=== PATIENT | female | born 1960 | race African-American/Black ===

== ENCOUNTER 2017-03-31 17:20 | Inpatient (IN) | payer BC ==
[2017-03-31 23:00] VITALS: BP 163/82; PULSE 86; RESP 18; TEMP 97.6; O2SAT 96
[2017-03-31] MEDS ORDERED: diphenhydrAMINE HCL 50 MG CAP - HS PRN PO (23:30)
[2017-03-31] MEDS ORDERED: LORazepam 2 MG/ML VIAL IM PRN (23:30)
[2017-03-31] MEDS ORDERED: ALUMINUM/MAGNESIUM/SIMETH 30 ML CUP PO PRN (23:30)
[2017-03-31] MEDS ORDERED: diphenhydrAMINE HCL 50 MG/ML VIAL IM PRN (23:30)
[2017-03-31] MEDS ORDERED: LORazepam 1 MG TAB PO PRN (23:30)
[2017-03-31] MEDS ORDERED: MAGNESIUM HYDROXIDE SUSP 30 ML CUP PO PRN (23:30)
[2017-03-31] MEDS ORDERED: traZODone HCL 50 MG TAB PO PRN (23:30)
[2017-03-31] MEDS ORDERED: diphenhydrAMINE HCL 50 MG/ML VIAL - HS PRN IM (23:30)
[2017-04-01] MEDS: diphenhydrAMINE HCL 50 MG CAP PO PRN (00:58)
[2017-04-01] MEDS: risperiDONE 1 MG TAB PO SCH ×3 (00:58→20:55)
[2017-04-01] MEDS ORDERED: ZIPRASIDONE MESYLATE 20 MG VIAL IM ONE (02:00)
[2017-04-01 04:40] VITALS: BP 145/76; PULSE 83; RESP 16; TEMP 97.2; O2SAT 95
[2017-04-01] MEDS ORDERED: HALOPERIDOL LACTATE 5 MG/ML AMP ONE (07:24)
[2017-04-01] MEDS ORDERED: HALOPERIDOL LACTATE 5 MG/ML AMP IM STA (07:30)
[2017-04-01] MEDS ORDERED: HALOPERIDOL 5 MG TAB PO PRN (14:45)
--- NOTE | 2017-04-01 14:45 | HHI.HP ---
Provisional Diagnosis Admission Date Mar 31, 2017 at 23:14 [place] I. 1. Bipolar disorder, type I, currently manic, severe with psychotic features [place] II. Deferred Certification of Person's Competence To Provide Express and Informed Consent I have personally examined Elizabeth Fisher , a person being served at [facility] on, Apr 01, 2017 14:45. Express and informed consent means consent voluntarily given in writing, by a competent person, after sufficient explanation and disclosure of the subject matter involved to enable the person to make a knowing and willful decision without any element of force, fraud, deceit, duress, or other form of constraint or coercion. This person is 18 years of age or older, is not now known to be incompetent to consent to treatment with a guardian advocate, and does not have a health care surrogate or proxy currently making medical treatment decisions. I have found this person to be one of the following: [] Competent to provide express and informed consent, as defined above, for voluntary admission to this facility and is competent to provide express and informed consent for treatment. He/she has the consistent capacity to make well reasoned, willful, and knowing decisions concerning his or her medical or mental health treatment. The person fully and consistently understands the purpose of the admission for examination/placement and is fully capable of personally exercising all rights assured under [place] [x] Incompetent to provide express and informed consent to voluntary admission, and this is incompetent to provide express and informed consent to treatment. The person must be transferred to involuntary status and a petition for a guardian advocate filed with the Circuit Court. [] Refusing to provide express and informed consent to voluntary admission but is competent to provide express and informed consent for treatment. The person must be discharged or transferred to involuntary status. Form shall be completed within 24 hours of a person's arrival at the receiving facility and filed in the clinical record of each person: 1. Admitted on a voluntary basis 2. Permitted to provide express and informed consent to his/her own treatment 3. Allowed to transfer from involuntary to voluntary status 4. Prior to permitting a person to consent to his or her own treatment after having been previously found incompetent to consent to treatment. History of Present Illness Capacity: Lacks Capacity HPI Ms. Fisher is a 56-year-old female with a reported history of bipolar disorder who presents in transfer from hospital in [place] under a Reeder Act. Documentation from outside hospital reviewed. Reviewing our own electronic medical record, it appears this is patient's first visit to [facility]. Patient seen and examined with nurse. Chart reviewed. Case discussed with nursing staff. Patient was extremely behaviorally disorganized this morning, stripping off her clothes, urinating and rolling in the urine. I was called to provide an ETO order and medicated the patient with Haldol. At the time of my evaluation now in the early afternoon, the patient seems to be deriving significant benefit from this injection. She is much more organized and able to provide a fairly coherent history. She says "I used to have high feelings for lin or women by themselves. Now, since the election started, it was with Jonatan. How it would be bad for him to become president. So I felt like I was going to hell, but I got snatched out of a downward spiral by the rahel of God." She says that she believes that she was rescued by a insole tack puller hand and says "he and I are going to be ." She says "it feels like it's God telling me to do things that I otherwise wouldn't do like partying in the nude." Thought process remains tangential with significant loosening of associations. She denies audiovisual hallucinations but appears internally preoccupied. Affect is somewhat blunted now, but this is likely secondary to ETO. She denies any suicidal or homicidal ideation but seems unreliable to contract for safety. She says that her sleep and appetite recently have been fair. Remainder of the psychiatric ROS is negative. Nursing staff has obtain collateral from the patient's mother to the effect that she has been decompensating since late last week. Main stressor was apparently a low score on and exam in college. Past psychiatric history: The patient reports a history of bipolar disorder. She is followed by a female psychiatrist but cannot remember the name. She is prescribed lithium, Risperdal and Cogentin, and mother has provided us with the doses. She says that her last psychiatric admission was about a year ago. She denies a history of suicide attempts. Family history: The patient denies a family history of mental illness. Chemical dependency history: The patient denies any abuse of drugs or alcohol. Social history: The patient reports that she lives alone. She attends [employer]. 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 She also works at a [employer]. She is single with no children. No reported access to guns or firearms. Review of Systems ROS Limitations: Psychotic, Poor Historian Except as stated in HPI: all other systems reviewed are Neg Past Psych History Psychological trauma history No reported trauma history to me. Violence risk - others (6 mos) Indeterminate. Patient is psychotic and unpredictable. Violence risk - self (6 mos) Indeterminate. Patient is psychotic and unpredictable. Substance Abuse History Drugs/Alcohol past 12 months See above Past Family Social History Coded Allergies: Penicillin (Verified Allergy, Unknown, 03/31/17) Past Medical History Patient denies any significant medical history. Current Medications Medications (Trade) Dose Ordered Sig/Deedee Route Start Time Stop Time Status Last Admin (Ativan) 1 mg Q6H PRN PO 03/31/17 23:30 04/01/17 00:58 (Ativan Inj) 1 mg Q6H PRN IM 03/31/17 23:30 04/01/17 07:05 (Atarax) 50 mg Q6H PRN PO 03/31/17 23:30 (Benadryl) 50 mg Q6H PRN PO 03/31/17 23:30 04/01/17 00:58 (Benadryl Inj) 50 mg Q6H PRN IM 03/31/17 23:30 04/01/17 07:06 (Benadryl) 50 mg HS PRN PO 03/31/17 23:30 (Benadryl Inj) 50 mg HS PRN IM 03/31/17 23:30 (Desyrel) 50 mg HS PRN PO 03/31/17 23:30 (Tylenol) 650 mg Q4H PRN PO 03/31/17 23:30 (Milk Of Magnesia Liq) 30 ml DAILY PRN PO 03/31/17 23:30 (Mag-Al Plus Susp Liq) 30 ml Q6H PRN PO 03/31/17 23:30 (risperDAL) 2 mg BID PO 03/31/17 23:28 04/01/17 00:58 Family History See above Social History See above Patient's Strengths (min. 2) Supportive mother. Verbally fluent. Physical Exam Physical examination completed at referring hospital. On my examination today, the patient appears to be fairly well-nourished and well-developed and in no acute physical distress. No motoric abnormalities noted. Laboratories and vital signs reviewed: Vital Signs Vital Signs Date Time Temp Pulse Resp B/P Pulse Ox O2 Delivery O2 Flow Rate FiO2 04/01/17 04:40 97.2 83 16 145/76 95 Lab Results CBC is unremarkable. CMP is significant for mildly elevated anion gap and mild hyperglycemia in a nonfasting sample. Urine toxicology negative. Alcohol level undetectable. Urinalysis reveals 1+ ketones. Head CT was read as no acute process. Mental Status Examination Patient is in hospital gown. She is somewhat disheveled but now maintaining basic hygiene. Earlier this morning she was not maintaining basic hygiene. She is awake and alert and oriented to person. No evidence of delirium. No abnormal motor movements noted. The patient is presently somewhat psychomotor slowed, again likely secondary the ETO. Speech is somewhat slow. Focus and concentration mildly impaired. Memory grossly intact on clinical exam. Mood elevated. Affect presently blunted. Thought process tangential with significant loosening of associations. Grandiose delusions present. Denies AVH but appears internally preoccupied. Denies SI or HI but is unreliable to contract for safety. Insight and judgment are poor. Assessment & Plan Problem List: (1) Bipolar disorder ICD Code: F31.9 Assessment & Plan This is a 56-year-old female with psychiatric history as detailed above who presents in transfer from outside hospital under a Reeder act. Patient was significantly behaviorally disorganized this morning but is improved now status post ETO. Mood remains elevated with delusions of grandeur and significant loosening of associations suggestive of a severe manic episode with psychotic features. Patient reports approximately 3 days of medication nonadherence. Patient requires psychiatric hospitalization at this time for safety, observation and stabilization. Admit inpatient. Involuntary status. I've completed first opinion. Consult for second opinion. Request healthcare surrogate and guardian advocate. Check BMP and TFTs for lithium therapy. I will resume lithium 600 mg twice daily. Risperdal has artery been titrated to 2 mg twice daily, and I agree with this titration in light of her acutely psychotic state. I will continue Cogentin 2 mg twice daily for EPS. Haldol as needed for agitation, Ativan as needed for anxiety, Benadryl as needed for breakthrough EPS, Ambien as needed for insomnia. Vitals every shift. Counselor to see. Encourage participation in unit activities as patient is able given her level of function. Disposition planning. Estimated length of stay: 7-9 days. Discharge Planning Pending psychiatric stabilization Request HC Surrog/Guard Advoc?: Yes Problem Qualifiers (1) Bipolar disorder: Qualified Code: F31.2 - Bipolar affective disorder, currently manic, severe, with psychotic features Jossue Sarmiento MD Apr 01, 2017 14:45
[2017-04-01] MEDS: HALOPERIDOL LACTATE 5 MG/ML AMP IM PRN (15:34)
[2017-04-01] MEDS ORDERED: LORazepam 1 MG TAB PO PRN (17:30)
[2017-04-01 18:00] VITALS: BP 167/90; PULSE 93; RESP 17; TEMP 98.6; O2SAT 96
[2017-04-01] MEDS: LITHIUM CARBONATE 300 MG CAP PO SCH (20:55)
[2017-04-01] MEDS: BENZTROPINE MESYLATE 2 MG TAB PO SCH (20:55)
[2017-04-01] MEDS: LORazepam 2 MG/ML VIAL IM PRN (20:56)
[2017-04-02 06:46] VITALS: BP 144/87; PULSE 85; RESP 16; TEMP 97.6; O2SAT 99
[2017-04-02 07:54] LABS: BICARBONATE 25.4 MEQ/L (21.0-32.0); POTASSIUM 3.3 MEQ/L (3.5-5.1)
[2017-04-02] MEDS: LITHIUM CARBONATE 300 MG CAP PO SCH ×2 (08:07→21:46)
[2017-04-02] MEDS: BENZTROPINE MESYLATE 2 MG TAB PO SCH ×2 (08:07→21:46)
[2017-04-02] MEDS: risperiDONE 1 MG TAB PO SCH ×2 (08:07→21:46)
[2017-04-02 08:10] LABS: FREE T4 1.12 NG/DL (0.76-1.46)
--- NOTE | 2017-04-02 09:26 | HHI.PYPN ---
Subjective Remarks Patient seen on unit with nurse Trae and medical student Kenji, chart review, patient seen in her room. She shows marked thought blocking acknowledging auditory hallucinations claiming that the voice is her and at times consulted to do bad things there is marked decreased range intensity of her affect. She shown no significant behavioral problems. [place] level on admission contacted 0.3. Patient initially seen by Dr. Johnson's H&P reviewed and agreed with. He has signed first opinion petition supporting Reeder act. I agree. Patient meets criteria for involuntary psychiatric hospitalization under the Reeder act. Thus I will do second opinion petition supporting Reeder act for now we'll continue medication no change need to get a lithium level in about 3 days. We'll attempt to research her patient is in the family they can help us with treating this lady Review of Systems Except as stated in HPI: all other systems reviewed are Neg Objective Alert: Yes [place]: Person, Place Mood: Calm Affect: Other (decrease range and intensity of her affect) Memory Intact: Comment Hallucinations: Auditory (identifying it as her was threatening to work ) Delusions: Yes Delusion Type: Paranoid Suicidal: Ideation (denies) Homicidal: Ideation (denies) Insight/Judgment Poor Labs Test 04/02/17 07:00 Sodium Level 145 MEQ/L Potassium Level 3.3 MEQ/L Chloride Level 112 MEQ/L Carbon Dioxide Level 25.4 MEQ/L Anion Gap 8 MEQ/L Blood Urea Nitrogen 7 MG/DL Creatinine 0.97 MG/DL Estimat Glomerular Filtration 72 ML/MIN Rate Random Glucose 119 MG/DL Calcium Level 10.1 MG/DL Free Thyroxine 1.12 NG/DL Thyroid Stimulating Hormone 1.280 uIU/ML 3rd Gen [place] Level 0.3 MEQ/L Vitals/IOs Vital Signs Date Time Temp Pulse Resp B/P Pulse Ox O2 Delivery O2 Flow Rate FiO2 04/02/17 06:46 97.6 85 16 144/87 99 Assessment & Plan Problem List: (1) Bipolar disorder ICD Code: F31.9 Assessment & Plan Estimated LOS: days patient meets Reeder criteria will cosign second opinion petition supporting Reeder act. Continue medication at this time no change, will have counselor attempt to reach patient's family to get further information about this lady Justification for Cont. Inpt. At this time patient will decompensate the placed in a lower level of care Discharge Planning To be determined Request HC Surrog/Guard Advoc?: Yes Problem Qualifiers (1) Bipolar disorder: Qualified Code: F31.2 - Bipolar affective disorder, currently manic, severe, with psychotic features Leonel Boyd MD Apr 02, 2017 09:26
[2017-04-02] MEDS: HALOPERIDOL LACTATE 5 MG/ML AMP IM PRN (14:37)
[2017-04-02] MEDS: LORazepam 2 MG/ML VIAL IM PRN (14:37)
[2017-04-03 00:39] VITALS: BP 153/83; PULSE 107; RESP 18; TEMP 97.8; O2SAT 100
[2017-04-03 05:43] VITALS: BP 143/93; PULSE 119; RESP 18; TEMP 97.8; O2SAT 95
[2017-04-03] MEDS: ACETAMINOPHEN 325 MG TAB PO PRN (06:36)
[2017-04-03] MEDS: LITHIUM CARBONATE 300 MG CAP PO SCH ×2 (08:41→21:03)
[2017-04-03] MEDS: risperiDONE 1 MG TAB PO SCH ×2 (08:41→21:03)
[2017-04-03] MEDS: BENZTROPINE MESYLATE 2 MG TAB PO SCH ×2 (08:41→21:03)
--- NOTE | 2017-04-03 09:43 | HHI.PYPN ---
Subjective Remarks Patient seen in [address] with medical student Domo, patient now states she has 7 "played brothers and Place sisters, in her head. She also states she has a man friend in her head. Though she does not identify him as her and she did yesterday. She is otherwise been no significant behavioral problems did shower this morning the assistance of staff. She has been compliant with her medications. [place] level yesterday morning was 0.3. Will recheck it on for now continue other medications no change Review of Systems Except as stated in HPI: all other systems reviewed are Neg Objective Alert: Yes [place]: Person, Place Mood: Calm Affect: Other (decrease range and intensity of her affect) Memory Intact: Comment Hallucinations: Auditory (identifying it as her was threatening to work ) Delusions: Yes Delusion Type: Paranoid Suicidal: Ideation (denies) Homicidal: Ideation (denies) Insight/Judgment Poor Vitals/IOs Vital Signs Date Time Temp Pulse Resp B/P Pulse Ox O2 Delivery O2 Flow Rate FiO2 04/03/17 05:43 97.8 119 18 143/93 95 Assessment & Plan Problem List: (1) Bipolar disorder ICD Code: F31.9 Assessment & Plan Estimated LOS: days patient continue psychotic and delusional, she has been compliant with the medications. For now continue treatment no change will check lithium level on 04/05 Justification for Cont. Inpt. At this time patient will decompensate if placed in a lower level of care Discharge Planning To be determined Request HC Surrog/Guard Advoc?: Yes Problem Qualifiers (1) Bipolar disorder: Qualified Code: F31.2 - Bipolar affective disorder, currently manic, severe, with psychotic features Leonel Boyd MD Apr 03, 2017 09:43
[2017-04-03 17:53] VITALS: BP 137/85; PULSE 83; RESP 18; TEMP 97.7; O2SAT 99
[2017-04-04] MEDS: ACETAMINOPHEN 325 MG TAB PO PRN (02:01)
[2017-04-04] MEDS: LORazepam 2 MG/ML VIAL IM PRN (03:32)
[2017-04-04 06:23] VITALS: BP 149/90; PULSE 101; RESP 20; TEMP 99.2; O2SAT 98
[2017-04-04] MEDS: LITHIUM CARBONATE 300 MG CAP PO SCH ×2 (09:43→21:39)
[2017-04-04] MEDS: risperiDONE 1 MG TAB PO SCH ×2 (09:43→21:39)
[2017-04-04] MEDS: BENZTROPINE MESYLATE 2 MG TAB PO SCH ×2 (09:43→21:39)
--- NOTE | 2017-04-04 13:42 | HHI.PYPN ---
Subjective Remarks Patient seen in day room with nurse Nhan, chart reviewed, patient calm cooperative there delusions are slowly softening, she is compliant with medication. She does denies suicidality homicidality voices or visions at this time. At this summer feel patient has capacity to sign voluntary. Will lift Reeder act well patient to sign voluntary Review of Systems Except as stated in HPI: all other systems reviewed are Neg Objective Alert: Yes [place]: Person, Place Mood: Calm Affect: Other (decrease range and intensity of her affect) Memory Intact: Comment Hallucinations: Auditory (states voices are diminishing now) Delusions: Yes Delusion Type: Paranoid Suicidal: Ideation (denies) Homicidal: Ideation (denies) Insight/Judgment Poor Vitals/IOs Vital Signs Date Time Temp Pulse Resp B/P Pulse Ox O2 Delivery O2 Flow Rate FiO2 04/04/17 06:23 99.2 101 20 149/90 98 Assessment & Plan Problem List: (1) Bipolar disorder ICD Code: F31.9 Assessment & Plan Estimated LOS: days patient psychosis is softening, compliant medications, at this time patient has capacity to sign for this admission will lift Reeder act allow her to sign voluntary Justification for Cont. Inpt. At this time patient will decompensate the placed in the lower level of care Discharge Planning To be determined Request HC Surrog/Guard Advoc?: Yes Problem Qualifiers (1) Bipolar disorder: Qualified Code: F31.2 - Bipolar affective disorder, currently manic, severe, with psychotic features Leonel Boyd MD Apr 04, 2017 13:42
[2017-04-04 19:15] VITALS: BP 132/64; PULSE 84; RESP 18; TEMP 98.2; O2SAT 97
[2017-04-05 06:10] VITALS: BP 130/81; PULSE 108; RESP 16; TEMP 97.4; O2SAT 99
[2017-04-05] MEDS: risperiDONE 1 MG TAB PO SCH ×2 (08:20→20:45)
[2017-04-05] MEDS: LITHIUM CARBONATE 300 MG CAP PO SCH ×2 (08:20→20:45)
[2017-04-05] MEDS: BENZTROPINE MESYLATE 2 MG TAB PO SCH ×2 (08:20→20:45)
--- NOTE | 2017-04-05 16:31 | HHI.PYPN ---
Subjective Remarks Patient seen in dayroom with medical student Domo. Chart reviewed. Patient compliant with medications. She now denies suicidality homicidality voices or visions. States she wishes to go home she will have her mother and other family members help her for a while at home. Patient continues to do well consider discharge tomorrow Review of Systems Except as stated in HPI: all other systems reviewed are Neg Objective Alert: Yes [place]: Person, Place Mood: Calm Affect: Other (decrease range and intensity of her affect) Memory Intact: Comment Hallucinations: Auditory (now denies) Delusions: Yes Delusion Type: Paranoid Suicidal: Ideation (denies) Homicidal: Ideation (denies) Insight/Judgment Poor Labs Test 04/05/17 07:43 [place] Level 1.1 MEQ/L Vitals/IOs Vital Signs Date Time Temp Pulse Resp B/P Pulse Ox O2 Delivery O2 Flow Rate FiO2 04/05/17 06:10 97.4 108 16 130/81 99 Assessment & Plan Problem List: (1) Bipolar disorder ICD Code: F31.9 Assessment & Plan Estimated LOS: days patient psychosis slowly resolving she is improving doing better today if improvement continues consider discharge tomorrow Justification for Cont. Inpt. See above Discharge Planning Consider discharge tomorrow Request HC Surrog/Guard Advoc?: Yes Problem Qualifiers (1) Bipolar disorder: Qualified Code: F31.2 - Bipolar affective disorder, currently manic, severe, with psychotic features Leonel Boyd MD Apr 05, 2017 16:31
[2017-04-05 17:40] VITALS: BP 134/70; PULSE 78; RESP 18; TEMP 98.5; O2SAT 96
[2017-04-05] MEDS: diphenhydrAMINE HCL 50 MG CAP PO PRN (22:21)
[2017-04-05] MEDS: ZOLPIDEM TARTRATE 5 MG TAB PO PRN (22:21)
[2017-04-06 06:02] VITALS: BP 158/82; PULSE 76; RESP 18; TEMP 97.8; O2SAT 98
[2017-04-06] MEDS: LITHIUM CARBONATE 300 MG CAP PO SCH ×2 (09:38→21:02)
[2017-04-06] MEDS: BENZTROPINE MESYLATE 2 MG TAB PO SCH ×2 (09:38→21:02)
[2017-04-06] MEDS: risperiDONE 1 MG TAB PO SCH ×2 (09:39→21:02)
--- NOTE | 2017-04-06 15:21 | HHI.PYPN ---
Subjective Remarks Patient seen in dayroom with nurse Lindsay and medical student Domo chart reviewed. Patient compliant medication patient calm cooperative is vague about any auditory hallucinations at the present time though she still may be hearing "Dez" minivan patient showing no behavioral issues is calm and cooperative for now continue treatment Review of Systems Except as stated in HPI: all other systems reviewed are Neg Objective Alert: Yes [place]: Person, Place Mood: Calm Affect: Other (decrease range and intensity of her affect) Memory Intact: Comment Hallucinations: Auditory (now denies) Delusions: Yes Delusion Type: Paranoid Suicidal: Ideation (denies) Homicidal: Ideation (denies) Insight/Judgment Poor Vitals/IOs Vital Signs Date Time Temp Pulse Resp B/P Pulse Ox O2 Delivery O2 Flow Rate FiO2 04/06/17 06:02 97.8 76 18 158/82 98 Assessment & Plan Problem List: (1) Bipolar disorder ICD Code: F31.9 Assessment & Plan Estimated LOS: days patient continues psychotic though diminishing, compliant medications, no behavior problems. Justification for Cont. Inpt. At this time patient will decompensate the placed in a lower level of care Discharge Planning To be determined Request HC Surrog/Guard Advoc?: Yes Problem Qualifiers (1) Bipolar disorder: Qualified Code: F31.2 - Bipolar affective disorder, currently manic, severe, with psychotic features Leonel Boyd MD Apr 06, 2017 15:21
[2017-04-06 16:15] VITALS: BP 170/79; PULSE 78; RESP 18; TEMP 98.8; O2SAT 99
[2017-04-07 05:44] VITALS: BP 125/74; PULSE 91; RESP 18; TEMP 98.8; O2SAT 97
[2017-04-07] MEDS: BENZTROPINE MESYLATE 2 MG TAB PO SCH ×2 (09:07→21:09)
[2017-04-07] MEDS: LITHIUM CARBONATE 300 MG CAP PO SCH ×2 (09:07→21:09)
[2017-04-07] MEDS: risperiDONE 1 MG TAB PO SCH ×2 (09:07→21:00)
--- NOTE | 2017-04-07 15:27 | HHI.PYPN ---
Subjective Remarks Pt seen and discussed with staff. She is religiously preoccupied, telling RNs to put 777 on their forehead to protect against 666. She states that she is feeling better today. She states that she was fearful that she had missed the rapture and would be decapitated but now doesn't think that is true. She states that she was told she is on the right path for living and will be taken in the rapture. She is taking medications without complaints and has not been disruptive. Objective Alert: Yes [place]: Person, Place Mood: Calm Affect: Other (decrease range and intensity of her affect) Memory Intact: Comment Hallucinations: Auditory (now denies) Delusions: Yes Delusion Type: Other (lutheran delusions) Suicidal: Ideation (denies) Homicidal: Ideation (denies) Insight/Judgment poor Vitals/IOs Vital Signs Date Time Temp Pulse Resp B/P Pulse Ox O2 Delivery O2 Flow Rate FiO2 04/07/17 05:44 98.8 91 18 125/74 97 Assessment & Plan Problem List: (1) Bipolar disorder ICD Code: F31.9 Assessment & Plan Continue current tx plan. Estimated LOS: days Justification for Cont. Inpt. 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
[2017-04-07 18:00] VITALS: BP 147/71; PULSE 76; RESP 18; TEMP 98.5; O2SAT 95
[2017-04-07] MEDS: diphenhydrAMINE HCL 50 MG CAP PO PRN (21:09)
[2017-04-07] MEDS: ACETAMINOPHEN 325 MG TAB PO PRN (21:10)
[2017-04-07] MEDS: hydrOXYzine HCL 50 MG TAB PO PRN (22:47)
[2017-04-08 06:04] VITALS: BP 153/80; PULSE 84; RESP 17; TEMP 98.6; O2SAT 98
[2017-04-08] MEDS: BENZTROPINE MESYLATE 2 MG TAB PO SCH ×2 (09:25→20:46)
[2017-04-08] MEDS: LITHIUM CARBONATE 300 MG CAP PO SCH ×2 (09:25→20:46)
[2017-04-08] MEDS: risperiDONE 1 MG TAB PO SCH ×2 (09:26→20:47)
--- NOTE | 2017-04-08 12:59 | HHI.PYPN ---
Subjective Remarks Pt seen and discussed with staff. Pt is compliant with mediations and denies side effects. She remains religiously preoccupied but states that depression is better because she prayed for a sign and received a message that god is not condemning her. She has spent most of the morning coping bible verses. No agitation or aggression. She is compliant with medications. No SI/HI Objective Alert: Yes [place]: Person, Place Mood: Calm Affect: Other (decrease range and intensity of her affect) Memory Intact: Comment Hallucinations: Auditory (now denies) Delusions: Yes Delusion Type: Other (judaism delusions) Suicidal: Ideation (denies) Homicidal: Ideation (denies) Insight/Judgment poor Vitals/IOs Vital Signs Date Time Temp Pulse Resp B/P Pulse Ox O2 Delivery O2 Flow Rate FiO2 04/08/17 06:04 98.6 84 17 153/80 98 Assessment & Plan Problem List: (1) Bipolar disorder ICD Code: F31.9 Assessment & Plan Continue current tx plan Estimated LOS: days Justification for Cont. Inpt. risk of decompensation Request HC Surrog/Guard Advoc?: Yes Problem Qualifiers (1) Bipolar disorder: Qualified Code: F31.2 - Bipolar affective disorder, currently manic, severe, with psychotic features Germania Zelaya MD Apr 08, 2017 12:59
[2017-04-08] MEDS: hydrOXYzine HCL 50 MG TAB PO PRN (20:48)
[2017-04-09 06:15] VITALS: BP 144/92; PULSE 92; RESP 17; TEMP 98.1; O2SAT 96
[2017-04-09] MEDS: BENZTROPINE MESYLATE 2 MG TAB PO SCH ×2 (09:06→20:21)
[2017-04-09] MEDS: risperiDONE 1 MG TAB PO SCH ×2 (09:06→20:20)
[2017-04-09] MEDS: LITHIUM CARBONATE 300 MG CAP PO SCH ×2 (09:06→20:20)
--- NOTE | 2017-04-09 17:08 | HHI.PYPN ---
Subjective Remarks Patient seen on unit with nurse know and medical student Domo, chart review , patient compliant medications no significant behavior problems have little anxiety attack earlier today but coping with that well. For now continue treatment Review of Systems Except as stated in HPI: all other systems reviewed are Neg Objective Alert: Yes [place]: Person, Place Mood: Calm Affect: Other (decrease range and intensity of her affect) Memory Intact: Comment Hallucinations: Auditory (now denies) Delusions: Yes Delusion Type: Other (jainism delusions) Suicidal: Ideation (denies) Homicidal: Ideation (denies) Insight/Judgment Poor Vitals/IOs Vital Signs Date Time Temp Pulse Resp B/P Pulse Ox O2 Delivery O2 Flow Rate FiO2 04/09/17 06:15 98.1 92 17 144/92 96 Assessment & Plan Problem List: (1) Bipolar disorder ICD Code: F31.9 Assessment & Plan Estimated LOS: days patient psychosis is resolving, compliant medications, for now continue treatment Justification for Cont. Inpt. At this time patient will decompensate the place a lower level of care Discharge Planning To be determined Request HC Surrog/Guard Advoc?: Yes Problem Qualifiers (1) Bipolar disorder: Qualified Code: F31.2 - Bipolar affective disorder, currently manic, severe, with psychotic features Leonel Boyd MD Apr 09, 2017 17:08
[2017-04-09 18:00] VITALS: BP 151/83; PULSE 79; RESP 18; TEMP 97.4; O2SAT 98
[2017-04-10 06:00] VITALS: BP 141/63; PULSE 78; RESP 18; TEMP 97.4; O2SAT 97
[2017-04-10] MEDS: risperiDONE 1 MG TAB PO SCH ×2 (08:41→21:32)
[2017-04-10] MEDS: BENZTROPINE MESYLATE 2 MG TAB PO SCH ×2 (08:41→21:32)
[2017-04-10] MEDS: LITHIUM CARBONATE 300 MG CAP PO SCH ×2 (08:41→21:31)
--- NOTE | 2017-04-10 11:26 | HHI.PYPN ---
Subjective Remarks Patient seen in dayroom with medical student Domo, chart review, patient compliant medication. Patient continues calm pleasant somewhat holiness in her topics though overall no significant behavioral issues, continue somewhat vague about voices. Compliant medication Review of Systems Except as stated in HPI: all other systems reviewed are Neg Objective Alert: Yes [place]: Person, Place Mood: Calm Affect: Other (decrease range and intensity of her affect) Memory Intact: Comment Hallucinations: Auditory (now denies) Delusions: Yes Delusion Type: Other (holiness delusions) Suicidal: Ideation (denies) Homicidal: Ideation (denies) Insight/Judgment Poor Vitals/IOs Vital Signs Date Time Temp Pulse Resp B/P Pulse Ox O2 Delivery O2 Flow Rate FiO2 04/10/17 06:00 97.4 78 18 141/63 97 Assessment & Plan Problem List: (1) Bipolar disorder ICD Code: F31.9 Assessment & Plan Estimated LOS: days patient continue psychotic though softer, compliant medications, no behavioral issues Justification for Cont. Inpt. At this time patient decompensate the placed in a lower level of care Discharge Planning To be determined Request HC Surrog/Guard Advoc?: Yes Problem Qualifiers (1) Bipolar disorder: Qualified Code: F31.2 - Bipolar affective disorder, currently manic, severe, with psychotic features Leonel Boyd MD Apr 10, 2017 11:26
[2017-04-10 18:06] VITALS: BP 124/77; PULSE 83; RESP 16; TEMP 98.3; O2SAT 97
[2017-04-11 06:01] VITALS: BP 135/68; PULSE 83; RESP 18; TEMP 97.3; O2SAT 96
[2017-04-11] MEDS: BENZTROPINE MESYLATE 2 MG TAB PO SCH ×2 (09:17→21:43)
[2017-04-11] MEDS: LITHIUM CARBONATE 300 MG CAP PO SCH ×2 (09:17→21:43)
[2017-04-11] MEDS: risperiDONE 1 MG TAB PO SCH ×2 (09:17→21:43)
--- NOTE | 2017-04-11 14:30 | HHI.PYPN ---
Subjective Remarks Patient seen in the [facility] nurse Honey. Chart review, patient compliant medication. Patient calm pleasant with me improved eye contact improved affect. Denies suicidality homicidality voices or visions. Review of Systems Except as stated in HPI: all other systems reviewed are Neg Objective Alert: Yes [place]: Person, Place Mood: Calm Affect: Other (decrease range and intensity of her affect) Memory Intact: Comment Hallucinations: Auditory (now denies) Delusions: Yes Delusion Type: Other (holiness delusions) Suicidal: Ideation (denies) Homicidal: Ideation (denies) Insight/Judgment Poor Vitals/IOs Vital Signs Date Time Temp Pulse Resp B/P Pulse Ox O2 Delivery O2 Flow Rate FiO2 04/11/17 06:01 97.3 83 18 135/68 96 Assessment & Plan Problem List: (1) Bipolar disorder ICD Code: F31.9 Assessment & Plan Estimated LOS: days patient psychosis is resolving, compliant medications, now continue treatment Justification for Cont. Inpt. At this time patient will decompensate placed in a lower level of care Discharge Planning To be determined Request HC Surrog/Guard Advoc?: Yes Problem Qualifiers (1) Bipolar disorder: Qualified Code: F31.2 - Bipolar affective disorder, currently manic, severe, with psychotic features Leonel Boyd MD Apr 11, 2017 14:30
[2017-04-11 18:10] VITALS: BP 132/60; PULSE 83; RESP 20; TEMP 98.4; O2SAT 97
[2017-04-11] MEDS: ZOLPIDEM TARTRATE 5 MG TAB PO PRN (22:47)
[2017-04-12 05:46] VITALS: BP 123/78; PULSE 74; RESP 17; TEMP 98; O2SAT 98
[2017-04-12] MEDS: BENZTROPINE MESYLATE 2 MG TAB PO SCH ×2 (08:42→20:19)
[2017-04-12] MEDS: risperiDONE 1 MG TAB PO SCH ×2 (08:42→20:19)
[2017-04-12] MEDS: LITHIUM CARBONATE 300 MG CAP PO SCH ×2 (08:42→20:19)
--- NOTE | 2017-04-12 15:54 | HHI.PYPN ---
Subjective Remarks Patient seen in dayroom with medical student Domo, chart review, patient compliant medications. Patient continues calm pleasant excited about possible discharge tomorrow. Denies suicidality homicidality voices or visions. Review of Systems Except as stated in HPI: all other systems reviewed are Neg Objective Alert: Yes [place]: Person, Place Mood: Calm Affect: Other (decrease range and intensity of her affect) Memory Intact: Comment Hallucinations: Auditory (now denies) Delusions: Yes Delusion Type: Other (hinduism delusions) Suicidal: Ideation (denies) Homicidal: Ideation (denies) Insight/Judgment Poor Vitals/IOs Vital Signs Date Time Temp Pulse Resp B/P Pulse Ox O2 Delivery O2 Flow Rate FiO2 04/12/17 05:46 98.0 74 17 123/78 98 Assessment & Plan Problem List: (1) Bipolar disorder ICD Code: F31.9 Assessment & Plan Estimated LOS: days patient psychosis is essentially resolved mood is improved. Consider discharge tomorrow to family Justification for Cont. Inpt. Consider discharge tomorrow to family Discharge Planning To be determined Request HC Surrog/Guard Advoc?: Yes Problem Qualifiers (1) Bipolar disorder: Qualified Code: F31.2 - Bipolar affective disorder, currently manic, severe, with psychotic features Leonel Boyd MD Apr 12, 2017 15:54
[2017-04-12 16:50] VITALS: BP 164/91; PULSE 74; RESP 20; TEMP 98.5; O2SAT 97
[2017-04-12] MEDS: ZOLPIDEM TARTRATE 5 MG TAB PO PRN (22:00)
[2017-04-13 05:44] VITALS: BP 136/85; PULSE 85; RESP 18; TEMP 98.7; O2SAT 96
[2017-04-13] MEDS: BENZTROPINE MESYLATE 2 MG TAB PO SCH (09:57)
[2017-04-13] MEDS: LITHIUM CARBONATE 300 MG CAP PO SCH (09:58)
[2017-04-13] MEDS: risperiDONE 1 MG TAB PO SCH (09:58)
[2017-04-13] MEDS ORDERED: RISP2TAB37 PO (14:18)
[2017-04-13] MEDS ORDERED: LITH300C2 PO (14:18)
[2017-04-13] MEDS ORDERED: Benztropine PO (14:18)
--- NOTE | 2017-04-13 14:23 | HHI.DS ---
Psychiatry Discharge Summary Inpatient Psychiatric care?: Yes Advance Directive: No Reason Not Provided: refused Mental Health AdvanceDirective: No (refused) Health Care Proxy: No Admission Admission Date Mar 31, 2017 at 23:14 Admission Diagnosis: (1) Bipolar disorder ICD Code: F31.9 Brief History Ms. Fisher is a 56-year-old female with a reported history of bipolar disorder who presents in transfer from hospital in [place] under a [place] Act. Documentation from outside hospital reviewed. Reviewing our own electronic medical record, it appears this is patient's first visit to [place]. Patient seen and examined with nurse. Chart reviewed. Case discussed with nursing staff. Patient was extremely behaviorally disorganized this morning, stripping off her clothes, urinating and rolling in the urine. I was called to provide an ETO order and medicated the patient with Haldol. At the time of my evaluation now in the early afternoon, the patient seems to be deriving significant benefit from this injection. She is much more organized and able to provide a fairly coherent history. She says "I used to have high feelings for lin or women by themselves. Now, since the election started, it was with Jonatan. How it would be bad for him to become president. So I felt like I was going to hell, but I got snatched out of a downward spiral by the rahel of God." She says that she believes that she was rescued by a real estate transaction coordinator and says "he and I are going to be ." She says "it feels like it's God telling me to do things that I otherwise wouldn't do like partying in the nude." Thought process remains tangential with significant loosening of associations. She denies audiovisual hallucinations but appears internally preoccupied. Affect is somewhat blunted now, but this is likely secondary to ETO. She denies any suicidal or homicidal ideation but seems unreliable to contract for safety. She says that her sleep and appetite recently have been fair. Remainder of the psychiatric ROS is negative. Nursing staff has obtain collateral from the patient's mother to the effect that she has been decompensating since late last week. Main stressor was apparently a low score on and exam in college. Past psychiatric history: The patient reports a history of bipolar disorder. She is followed by a female psychiatrist but cannot remember the name. She is prescribed lithium, Risperdal and Cogentin, and mother has provided us with the doses. She says that her last psychiatric admission was about a year ago. She denies a history of suicide attempts. Family history: The patient denies a family history of mental illness. Chemical dependency history: The patient denies any abuse of drugs or alcohol. Social history: The patient reports that she lives alone. She attends [employer] 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 She also works at a [employer]. She is single with no children. No reported access to guns or firearms. Tobacco Use In Past 30 Days: No Tobacco Past 30 Days Alcohol Use: Never Hospital Course Patient hospital course initially showed her psychosis with carlee, however is she adjusted to the milieu, participated in groups, and show compliance with medication, her behaviors offer him the psychosis and delusions gradually resolved. She continues compliant with medication now denies suicidality homicidality voices or visions. Is been communication with patient's family they willing for him home today they feel she is doing much better. Thus patient was discharged today with Rx 1 month follow-up mental health services through [facility] behavioral Results Blood Pressure 136 / 85 Vital Signs Date Time Temp Pulse Resp B/P Pulse Ox O2 Delivery O2 Flow Rate FiO2 04/13/17 05:44 98.7 85 18 136/85 96 [place] level I.1 on 04/05 Summary of Procedures None done Pending results at discharge: No Medications # of Antipsychotic meds at D/C: 1 Approp Antipsych med options 1 - Minimum of three failed multiple trials of monotherapy. 2 - Documented plan to taper to monotherapy due to previous use of multiple meds OR cross-taper in progress at D/C. 3 - Documentation of augmentation of Clozapine. 4 - Justification other than those listed in allowable values 1-3, document here : Discharge Discharge Date: Apr 13, 2017 Discharge Diagnosis: (1) Bipolar disorder Diagnosis: Principal ICD Code: F31.9 Mental Status Exam at Disch Alert oriented female sitting quietly in the day room, she is normal active, mood is euthymic to somewhat restricted with slight decrease range intensity of her affect. Speech rate slow but goal oriented, there are no formal thought disorders. No auditory or visual hallucinations, no delusions, insight and judgment is poor to fair, cognition grossly intact Pt Condition on Discharge: Stable Discharge Disposition: Discharge Home Discharge Instructions Diet Instructions: As Tolerated, No Restrictions Activities you can perform: Regular-No Restrictions Scheduled Appointment: [facility] Appointment Date: Apr 16, 2017 Appointment Time: 8:00am Discharge Time <= 30 minutes Discharge/Advance Care Plan Health Problems: (1) Bipolar disorder Goals to promote your health * To prevent worsening of your condition and complications * To maintain your health at the optimal level Directions to meet your goals Take your medications as prescribed Follow your dietary instruction Follow activity as directed Keep your appointments as scheduled Take your immunizations and boosters as scheduled If your symptoms worsen call your PCP, if no PCP go to Urgent Care Center or Emergency Room For 07/05 questions related to your inpatient stay or results of tests pending at discharge, please contact Dr. Leonel Boyd at Smoking is Dangerous to Your Health. Avoid second hand smoking Problem Qualifiers (1) Bipolar disorder: Qualified Code: F31.2 - Bipolar affective disorder, currently manic, severe, with psychotic features Leonel Boyd MD Apr 13, 2017 14:23
== END 2017-04-13 16:50 | disposition home or self-care (01) | DRG 885 ==
LOC: H270 23:14
PROVIDERS: ADMIT Psychiatry & Neurology Psychiatry; ATTEND Psychiatry & Neurology Psychiatry
DX: F31.2 Bipolar disorder, current episode manic severe with psychotic features (principal); Z91.14 Patient's other noncompliance with medication regimen
CPT/HCPCS: 80048; 80178; 84439; 84443; J1200; J1630; J2060; J3486; Q0163